=== PATIENT | female | born 1930 | race Caucasian/White ===

== ENCOUNTER 2018-10-03 07:33 | Emergency (ER) | payer MEDICARE ==
[~2018-10-03] VITALS: Ht 165.1 cm; Wt 63.5 kg
--- NOTE | 2018-10-03 07:45 | NUR ---
Dr Guerrero at the bedside for MSE.
[2018-10-03] MEDS ORDERED: FAMO20TA8 PO (07:46)
[2018-10-03] MEDS ORDERED: MULT1TAB82 PO (07:46)
[2018-10-03] MEDS ORDERED: LEVO100T10 PO (07:46)
[2018-10-03] MEDS ORDERED: ACET-2154 PO (07:46)
[2018-10-03] MEDS ORDERED: MOXI3DRO RIGHTEYE (07:46)
--- NOTE | 2018-10-03 08:19 | NUR ---
Pt out of ER for CT.
[2018-10-03 08:21] LABS: BASOPHILS # (AUTO) 0.1 K/uL (0.0-8.0); EOSINOPHILS # (AUTO) 0.2 K/uL (0.0-0.7); EOSINOPHILS % (AUTO) 3.5 % (0.0-7.0); HEMATOCRIT 33.3 % (31.2-41.9); HEMOGLOBIN 11.7 g/dL (10.9-14.3); LYMPHOCYTES # (AUTO) 1.7 K/uL (20.0-40.0); LYMPHOCYTES % (AUTO) 24.9 % (20.5-51.5); MEAN CORPUSCULAR HEMOGLOBIN 32.1 uug (24.7-32.8); MEAN CORPUSCULAR HGB CONC 35 g/dL (32.3-35.6); MEAN CORPUSCULAR VOLUME 91.5 fL (75.5-95.3); MONOCYTES # (AUTO) 0.6 K/uL (2.0-10.0); MONOCYTES % (AUTO) 8.7 % (0.0-11.0); NEUTROPHILS # (AUTO) 4.2 K/uL (1.8-8.9); NEUTROPHILS % (AUTO) 61.9 % (38.5-71.5); PLATELET COUNT (AUTO) 292 K/uL (179-408); RED BLOOD CELL COUNT(AUTO) 3.64 MIL/uL (3.63-4.92); WHITE BLOOD COUNT (AUTO) 6.8 K/uL (3.8-11.8)
[2018-10-03 08:37] LABS: CARBON DIOXIDE 24 mmol/L (21-32); CHLORIDE 102 mmol/L (98-107); CREATININE 0.8 mg/dL (0.6-1.3); GLUCOSE 90 mg/dL (74-106); POTASSIUM 3.4 mmol/L (3.5-5.1); UREA NITROGEN, BLOOD 13 mg/dL (7-18)
[2018-10-03 08:44] LABS: ACETAMINOPHEN < 2.0 ug/mL (10-30); ALANINE AMINOTRANSFERASE 83 U/L (14-59); ALKALINE PHOSPHATASE 132 U/L (50-136); ASPARTATE AMINOTRANSFERASE 39 U/L (15-37); BILIRUBIN,DIRECT 0.2 mg/dL (0.0-0.2); BILIRUBIN,TOTAL 0.7 mg/dL (0.2-1.0); TOTAL PROTEIN, SERUM 6.8 g/dL (6.4-8.2)
--- NOTE | 2018-10-03 08:49 | NUR ---
Pt able to use bedpan for urinating. Urine collected and sent to LAB.
--- NOTE | 2018-10-03 09:17 | NUR ---
Pt used walker for ambulating w/o difficulty. Pt's daughter at the bedside.
[2018-10-03 09:29] LABS: *BILIRUBIN,URIN NEGATIVE (NEGATIVE); *BLOOD, URINE Trace-lysed (NEGATIVE); *CLARITY,URINE SLIGHTLY CLOUDY (CLEAR); *COLOR,URINE YELLOW (YELLOW); *KETONES,URINE NEGATIVE (NEGATIVE); *PROTEIN,URINE NEGATIVE (NEGATIVE); *UROBILINOGEN,URINE 0.2 E.U./dl (NORMAL); LEUKOCYTE ESTERASE ,URINE 2+ (NEGATIVE); NITRITE, URINE POSITIVE (NEGATIVE); UGLUCOSE NEGATIVE (NEGATIVE)
[2018-10-03 09:30] LABS: BACTERIA,URINE MODERATE /HPF (NONE SEEN); RBC,URINE 0-3 /HPF (0-3); SQUAMOUS EPITHELIAL CELL,UR FEW /HPF (NONE SEEN)
--- NOTE | 2018-10-03 09:59 | NUR ---
Patient discharged to home in stable conditon to the care of [facility] staff and pt's daughter.. Written and verbal after care instructions given. Patient and pt's daughter verbalizes understanding of instructions.
[2018-10-03 10:00] VITALS: BP 114/71
== END 2018-10-03 10:01 | disposition home or self-care (01) ==
LOC: ER 07:33
DX: M79.641 Pain in right hand (principal); M25.551 Pain in right hip; E03.9 Hypothyroidism, unspecified; Z79.2 Long term (current) use of antibiotics; Z79.899 Other long term (current) drug therapy; W19.XXXA Unspecified fall, initial encounter; Y93.89 Activity, other specified; Y92.89 Other specified places as the place of occurrence of the external cause; Y99.8 Other external cause status
CPT/HCPCS: 36415; 70450; 71045; 72125; 72170; 73130; 80048; 80076; 81001; 82140; 83605; 84443; 84484; 85025; 85730; 87040 ×2; 93005; 99284; G0480; G0481; 70030-TC; A4663; C1758